=== PATIENT | male | born 1985 | race Two or more races ===

== ENCOUNTER 2024-04-25 03:43 | Emergency (ER) | payer OTHER ==
[~2024-04-25] VITALS: Ht 177.8 cm; Wt 82.7 kg
[2024-04-25 03:43] VITALS: BP 128/79; PULSE 76; RESP 18; TEMP 98.3; O2SAT 98
[2024-04-25] MEDS: bacitracin 15gm ointment TP ONE (04:15)
[2024-04-25] MEDS: TETanus/Pertussis (Acell)/Diphther VAC/PF (Tdap-Adult) 0.5ml syringe IMVAC ONE (04:16)
[2024-04-25] MEDS: ondansetron 4mg rapidly disintigrating tab PO ONE (04:19)
[2024-04-25] MEDS: sulfamethoxazole/trimethoprim DS (800/160mg) tablet PO ONE (04:24)
[2024-04-25] MEDS: LIDOcaine 1% W/epiNEPHrine 1:100,000 20ml vial IJ ONE (04:27)
[2024-04-25] MEDS ORDERED: SULF1TAB49 PO (04:46)
== END 2024-04-25 05:05 ==
LOC: ER 03:44
DX: S60.551A Superficial foreign body of right hand, initial encounter (principal); R51.9 Headache, unspecified; Z79.2 Long term (current) use of antibiotics; V89.2XXA Person injured in unspecified motor-vehicle accident, traffic, initial encounter; Y93.89 Activity, other specified; Y92.89 Other specified places as the place of occurrence of the external cause; Y99.8 Other external cause status
CPT/HCPCS: 70450; 73120; 90471; 90715; 99285